=== PATIENT | female | born 1965 | race Caucasian/White ===

== ENCOUNTER 2018-06-21 15:41 | Emergency (ER) | payer MEDICARE ==
[~2018-06-21] VITALS: Ht 167.6 cm; Wt 117.5 kg
[2018-06-21 15:44] VITALS: BP 154/78
[2018-06-21] MEDS ORDERED: PROCHLORPERAZINE 5 MG/ML, 2ML IVPush ONE (16:00)
[2018-06-21] MEDS ORDERED: DIPHENHYDRAMINE 50 MG/ML, 1ML IVPush ONE (16:00)
[2018-06-21] MEDS ORDERED: KETOROLAC 30 MG/1 ML IVPush ONE (16:00)
[2018-06-21] MEDS ORDERED: SODIUM CHLORIDE FLUSH 10ML SYR IVF ONE (16:00)
[2018-06-21 16:43] LABS: HCT (SEDRATE) 44.9 % (34.6-47.8)
[2018-06-21] MEDS ORDERED: DIPHENHYDRAMINE 50 MG/ML, 1ML ONE (16:59)
[2018-06-21] MEDS ORDERED: KETOROLAC 30 MG/1 ML ONE (16:59)
[2018-06-21] MEDS ORDERED: PROCHLORPERAZINE 5 MG/ML, 2ML ONE (16:59)
[2018-06-21] MEDS ORDERED: METHOCARBAMOL 750 MG TABLET PO ONE (18:30)
[2018-06-21] MEDS ORDERED: METHOCARBAMOL 750 MG TABLET ONE (18:36)
== END 2018-06-21 18:53 | disposition home or self-care (01) ==
LOC: ED 16:23
DX: G44.219 Episodic tension-type headache, not intractable (principal); E11.9 Type 2 diabetes mellitus without complications
CPT/HCPCS: 36415; 70450; 85651; 96374; 96375; 99284; J0780; J1200; J1885

== ENCOUNTER 2018-09-06 11:06 | Emergency (ER) | payer MEDICARE ==
[~2018-09-06] VITALS: Ht 167.6 cm; Wt 121.0 kg
[2018-09-06 11:56] LABS: BASOPHILS # (AUTO) 0.06 x10^3/uL (0-0.1); BASOPHILS % (AUTO) 1 % (0-1); EOSINOPHILS # (AUTO) 0.11 x10^3/uL (0-0.4); EOSINOPHILS % (AUTO) 1 % (1-7); LYMPHOCYTES # (AUTO) 2.45 x10^3/uL (1-3.4); LYMPHOCYTES % (AUTO) 32 % (22-44); MD NO; MEAN CORPUSCULAR HEMOGLOBIN 30.4 pg (27.0-34.8); MEAN CORPUSCULAR HGB CONC 33.2 g/dL (32.4-35.8); MEAN CORPUSCULAR VOLUME 91.5 fL (80-100); MEAN PLATELET VOLUME 7.9 fL (7.4-10.4); MONOCYTES # (AUTO) 0.37 x10^3/uL (0.2-0.8); MONOCYTES % (AUTO) 5 % (2-9); NEUTROPHILS # (AUTO) 4.77 x10^3/uL (1.8-6.8); NEUTROPHILS % (AUTO) 62 % (42-75); PLATELET COUNT 268 x10^3/uL (130-400); RED BLOOD COUNT 4.93 x10^6/uL (3.82-5.3); RED CELL DISTRIBUTION WIDTH 13.7 % (9.6-15.2)
[2018-09-06 12:06] LABS: ALANINE AMINOTRANSFERASE 26 U/L (12-78); ALBUMIN 3.6 g/dL (3.4-5.0); ANION GAP 6 mmol/L (5-15); CALCIUM 9.2 mg/dL (8.5-10.1); CHLORIDE 108 mmol/L (98-107)
[2018-09-06 12:10] LABS: ALKALINE PHOSPHATASE 109 U/L (45-117); BILIRUBIN,TOTAL 0.7 mg/dL (0.2-1.0); CREATININE 0.67 mg/dL (0.55-1.02); TOTAL PROTEIN 7.3 g/dL (6.4-8.2)
--- NOTE | 2018-09-06 12:34 | NUR ---
TO ROOM FROM LOBBY. NAD.
--- NOTE | 2018-09-06 12:37 | NUR ---
gown given. family at bs. connected to monitor.
--- NOTE | 2018-09-06 12:44 | NUR ---
pt complaining of lower abd pain, rad to left flank, weakness, nausea, sent by pcp after lab drawn
--- NOTE | 2018-09-06 12:45 | NUR ---
additional symptoms include dry mouth, fatigue, increased urination,
[2018-09-06 12:46] VITALS: BP 129/72
[2018-09-06 12:46] LABS: MICROSCOPIC NOT IND
[2018-09-06 12:59] LABS: CULTURE INDICATED? NO
--- NOTE | 2018-09-06 14:00 | NUR ---
report from avni rn With assessment patient sitting comfortably on bedside-sipping water w/out difficulty d/c dispo pending
== END 2018-09-06 14:39 | disposition home or self-care (01) ==
LOC: ED 14:09
DX: R53.1 Weakness (principal); E11.9 Type 2 diabetes mellitus without complications; R10.30 Lower abdominal pain, unspecified; R11.0 Nausea; R53.83 Other fatigue
CPT/HCPCS: 36415; 80053; 81003; 82962; 83690; 85025; 99283

== ENCOUNTER 2019-05-13 05:19 | Observation (INO) | payer MEDICARE ==
[2019-05-12 14:41] LABS: BASOPHILS # (AUTO) 0.02 x10^3/uL (0-0.1); BASOPHILS % (AUTO) 0 % (0-1); EOSINOPHILS # (AUTO) 0.11 x10^3/uL (0-0.4); EOSINOPHILS % (AUTO) 1 % (1-7); LYMPHOCYTES # (AUTO) 2.65 x10^3/uL (1-3.4); LYMPHOCYTES % (AUTO) 36 % (22-44); MD NO; MEAN CORPUSCULAR HGB CONC 34.2 g/dL (32.4-35.8); MEAN CORPUSCULAR VOLUME 90.6 fL (80-100); MEAN PLATELET VOLUME 8.1 fL (7.4-10.4); MONOCYTES # (AUTO) 0.35 x10^3/uL (0.2-0.8); MONOCYTES % (AUTO) 5 % (2-9); NEUTROPHILS # (AUTO) 4.31 x10^3/uL (1.8-6.8); NEUTROPHILS % (AUTO) 58 % (42-75); PLATELET COUNT 254 x10^3/uL (130-400); RED BLOOD COUNT 4.73 x10^6/uL (3.82-5.3); RED CELL DISTRIBUTION WIDTH 13.9 % (9.6-15.2)
[2019-05-12 14:52] LABS: ALANINE AMINOTRANSFERASE 38 U/L (12-78); ALBUMIN 3.2 g/dL (3.4-5.0); ANION GAP 8 mmol/L (5-15); CALCIUM 8.8 mg/dL (8.5-10.1); CHLORIDE 105 mmol/L (98-107)
[2019-05-12 14:55] LABS: ALKALINE PHOSPHATASE 104 U/L (45-117); BILIRUBIN,TOTAL 0.5 mg/dL (0.2-1.0); TOTAL PROTEIN 6.8 g/dL (6.4-8.2)
[~2019-05-13] VITALS: Ht 167.6 cm; Wt 120.0 kg
[~2019-05-13 05:19] MED LIST: ARIP10TA33 PO; BACL-19 PO; DULO60CA7 PO; OXYC-302 PO; SUVO10TA PO
[2019-05-13 06:05] VITALS: BP 126/89
[2019-05-13] MEDS ORDERED: LACTATED RINGERS 1,000 ML IV SCH (06:09)
[2019-05-13] MEDS ORDERED: ACETAMINOPHEN 100 ML IVPB ONE (06:30)
[2019-05-13] MEDS ORDERED: TRANEXAMIC ACID 100 MG/ML, 10ML ONE (06:45)
[2019-05-13] MEDS ORDERED: KETOROLAC 60 MG/2 ML ONE (06:45)
[2019-05-13] MEDS ORDERED: METHYLENE BLUE 10 MG/ML 10ML ONE (06:45)
[2019-05-13] MEDS ORDERED: morphine SULFATE/PF 1 MG/ML, 10ML ONE (06:45)
[2019-05-13] MEDS ORDERED: SODIUM CHLORIDE 0.9% 50 ML ONE (06:46)
[2019-05-13] MEDS ORDERED: EPINEPHRINE 1 MG/ML, 1ML ONE (06:46)
[2019-05-13] MEDS ORDERED: ROPIvacaine/PF 0.2%, 20 ML ONE (06:46)
[2019-05-13] MEDS ORDERED: MIDAZOLAM 1 MG/ML, 2ML ONE (06:55)
[2019-05-13] MEDS ORDERED: FENTANYL PF 250 MCG/5ML ONE ×2 (06:56→08:16)
[2019-05-13] MEDS ORDERED: VANCOMYCIN 1,000 MG ONE ×2 (07:00→07:29)
[2019-05-13] MEDS ORDERED: ACETAMINOPHEN 500 MG TABLET PO ONE (07:00)
[2019-05-13] MEDS ORDERED: SCOPOLAMINE 1MG PATCH TD ONE ×2 (07:04)
[2019-05-13] MEDS ORDERED: METOPROLOL 1 MG/ML, 5ML ONE (07:31)
[2019-05-13] MEDS ORDERED: hydrALAzine 20 MG/ML, 1ML ONE (07:31)
[2019-05-13] MEDS ORDERED: KETOROLAC 30 MG/1 ML IV PRN (08:30)
[2019-05-13] MEDS ORDERED: DIAZEPAM 5 MG/ML, 2ML IVPush PRN (08:30)
[2019-05-13] MEDS ORDERED: ACETAMINOPHEN 325 MG TABLET PO PRN (08:30)
[2019-05-13] MEDS ORDERED: OXYcodone 5 MG/5 ML ORAL.SOL UDC PO PRN (08:30)
[2019-05-13] MEDS ORDERED: MEPERIDINE/PF 25MG/0.5ML IVPush PRN (08:30)
[2019-05-13] MEDS ORDERED: LABETALOL 5MG/ML, 20ML IV PRN (08:30)
[2019-05-13] MEDS ORDERED: hydrALAzine 20 MG/ML, 1ML IV PRN (08:30)
[2019-05-13] MEDS ORDERED: PROMETHAZINE 25 MG/ML, 1ML IV PRN (08:30)
[2019-05-13] MEDS ORDERED: ALBUTEROL SULFATE 2.5 MG/3 ML NPPB PRN (08:30)
[2019-05-13] MEDS ORDERED: ONDANSETRON 2MG/ML, 2ML ONE (08:31)
[2019-05-13] MEDS ORDERED: DEXAMETHASONE 4 MG/ML, 1ML ONE (08:31)
[2019-05-13] MEDS ORDERED: PROPOFOL 10 MG/ML, 20ML ONE (08:31)
[2019-05-13] MEDS ORDERED: CEFAZOLIN 1,000 MG ONE (08:31)
[2019-05-13] MEDS ORDERED: SUCCINYLCHOLINE 20 MG/ML, 10ML ONE (08:31)
[2019-05-13] MEDS ORDERED: GLYCOPYRROLATE 0.2MG/1ML, 5ML ONE (08:31)
[2019-05-13] MEDS ORDERED: ROCURONIUM 10MG/ML,5ML ONE (08:31)
[2019-05-13] MEDS ORDERED: NEOSTIGMINE 1 MG/ML, 10ML ONE (08:31)
[2019-05-13] MEDS: FENTANYL PF 100 MCG/2ML IV PRN ×2 (09:35→09:44)
[2019-05-13] MEDS ORDERED: OXYcodone 5 MG/5 ML ORAL.SOL UDC ONE (09:38)
[2019-05-13] MEDS ORDERED: FENTANYL PF 100 MCG/2ML ONE (09:38)
[2019-05-13] MEDS: HYDROmorphone 1 MG/ML, 1ML INJ IVPush PRN ×2 (10:06→10:14)
[2019-05-13] MEDS ORDERED: HYDROmorphone 1 MG/ML, 1ML INJ ONE (10:07)
[2019-05-13 10:45] VITALS: BP 158/94
[2019-05-13] MEDS ORDERED: GEMFIBROZIL 600 MG TABLET ONE (11:22)
[2019-05-13] MEDS ORDERED: GABAPENTIN 300 MG CAPSULE ONE (11:24)
[2019-05-13] MEDS ORDERED: GABAPENTIN 300 MG CAPSULE PO PRN (11:30)
[2019-05-13] MEDS: KETOROLAC 30 MG/1 ML IVPush SCH ×3 (12:26→22:42)
[2019-05-13] MEDS ORDERED: ACETAMINOPHEN 500 MG TABLET PO SCH ×2 (12:30→13:00)
[2019-05-13] MEDS ORDERED: KETOROLAC 30 MG/1 ML IVPush SCH (12:30)
[2019-05-13] MEDS ORDERED: ONDANSETRON 2MG/ML, 2ML IVPush PRN ×2 (12:30→13:30)
[2019-05-13] MEDS ORDERED: HYDROcodone/APAP 7.5-325MG/15ML UDC PO PRN (12:30)
[2019-05-13] MEDS ORDERED: OXYcodone/APAP 5/325MG TABLET PO SCH ×2 (12:30→14:00)
[2019-05-13] MEDS ORDERED: POTASSIUM CHLORIDE 10 MEQ in D5%-0.45% NACL 1,000 ML IV SCH ×2 (12:30→13:30)
[2019-05-13 12:56] VITALS: BP 102/98
[2019-05-13] MEDS ORDERED: OXYcodone IR 5MG TABLET PO SCH (13:00)
[2019-05-13] MEDS: ACETAMINOPHEN 500 MG TABLET PO SCH ×2 (13:30→20:26)
[2019-05-13] MEDS ORDERED: CEFAZOLIN PMX 1GM/50ML 50 ML IVPB SCH (13:30)
[2019-05-13] MEDS ORDERED: HYDROcodone/APAP 10/325 MG TABLET PO PRN (13:30)
[2019-05-13] MEDS ORDERED: VANCOMYCIN PMX 1GM/200ML 200 ML IVPB ONE ×2 (13:30→20:00)
[2019-05-13] MEDS: HYDROcodone/APAP 7.5-325MG/15ML UDC PO PRN ×2 (14:05→18:03)
[2019-05-13] MEDS: CEFAZOLIN PMX 1GM/50ML 50 ML IVPB SCH (16:12)
[2019-05-13] MEDS: BACLOFEN 10 MG TABLET PO SCH ×2 (16:12→20:25)
[2019-05-13] MEDS ORDERED: ASPIRIN 81 MG TABLET EC PO SCH (18:00)
[2019-05-13] MEDS: ASPIRIN 81 MG TABLET EC PO SCH (18:03)
[2019-05-13] MEDS ORDERED: FLU VACC QS2019-20 36MOS UP/PF 0.5 ML IM-VACC ONE (19:30)
[2019-05-13 19:36] VITALS: BP 149/87
[2019-05-13] MEDS: DULOXETINE 30 MG CAPSULE.DR PO SCH (20:26)
[2019-05-13] MEDS ORDERED: GABAPENTIN 300 MG CAPSULE PO SCH (21:00)
[2019-05-13] MEDS ORDERED: SUVOREXANT 10 MG HOMEMEDPO PRN (21:00)
[2019-05-13] MEDS: OXYcodone IR 5MG TABLET PO SCH (22:42)
[2019-05-13 23:54] VITALS: BP 138/79
[2019-05-14] MEDS: CEFAZOLIN PMX 1GM/50ML 50 ML IVPB SCH (00:54)
[2019-05-14] MEDS: ACETAMINOPHEN 500 MG TABLET PO SCH ×2 (02:30→08:35)
[2019-05-14] MEDS: OXYcodone IR 5MG TABLET PO SCH ×2 (04:06→09:43)
[2019-05-14 04:36] VITALS: BP 150/81
[2019-05-14] MEDS: KETOROLAC 30 MG/1 ML IVPush SCH (06:05)
[2019-05-14] MEDS: ASPIRIN 81 MG TABLET EC PO SCH (06:06)
[2019-05-14 06:47] VITALS: BP 133/82
[2019-05-14] MEDS: DULOXETINE 30 MG CAPSULE.DR PO SCH (08:34)
[2019-05-14] MEDS: BACLOFEN 10 MG TABLET PO SCH (08:35)
[2019-05-14] MEDS ORDERED: ARIPIPRAZOLE 10 MG TABLET PO SCH (09:00)
== END 2019-05-14 13:40 | disposition home or self-care (01) ==
LOC: OUT 05:19 → MERGE 10:00 → 4NE 10:39 → OUT 13:50 → 4NE 13:57 → DCLOUNGE 05-14 13:32
PROVIDERS: ADMIT Orthopaedic Surgery; ATTEND Orthopaedic Surgery
DX: M17.12 Unilateral primary osteoarthritis, left knee (principal); E66.01 Morbid (severe) obesity due to excess calories; G89.29 Other chronic pain; Z68.41 Body mass index [BMI] 40.0-44.9, adult; Z79.899 Other long term (current) drug therapy; Z23 Encounter for immunization
CPT/HCPCS: 27447; 36415; 80053; 82962; 85025; 87081; 87147; 90686; 93005; 96365; 96366; 96367; 96375; 96376; 97110; 97161; 97530; C1713; C1776; G0008; G0378; J0171; J0330; J0360; J0690; J1100; J1170; J1885; J2250; J2274; J2405; J2704; J2795; J3010; J3370; J7120; Q9968; J2710

== ENCOUNTER 2019-10-01 12:03 | Inpatient (IN) | payer MEDICARE ==
[~2019-10-01] VITALS: Ht 167.6 cm; Wt 115.0 kg
--- NOTE | 2019-10-01 12:24 | NUR ---
MAKER UP FOLDING: PT FROM LOBBY TO ROOM AT THIS TIME.
[2019-10-01 12:42] LABS: BASOPHILS # (AUTO) 0.02 x10^3/uL (0-0.1); BASOPHILS % (AUTO) 0 % (0-1); EOSINOPHILS # (AUTO) 0.13 x10^3/uL (0-0.4); EOSINOPHILS % (AUTO) 2 % (1-7); LYMPHOCYTES # (AUTO) 2.87 x10^3/uL (1-3.4); LYMPHOCYTES % (AUTO) 33 % (22-44); MD NO; MEAN CORPUSCULAR HEMOGLOBIN 29.2 pg (27.0-34.8); MEAN CORPUSCULAR HGB CONC 33.4 g/dL (32.4-35.8); MEAN CORPUSCULAR VOLUME 87.4 fL (80-100); MEAN PLATELET VOLUME 8.1 fL (7.4-10.4); MONOCYTES # (AUTO) 0.39 x10^3/uL (0.2-0.8); MONOCYTES % (AUTO) 5 % (2-9); NEUTROPHILS # (AUTO) 5.33 x10^3/uL (1.8-6.8); NEUTROPHILS % (AUTO) 61 % (42-75); PLATELET COUNT 253 x10^3/uL (130-400); RED CELL DISTRIBUTION WIDTH 14.2 % (9.6-15.2)
--- NOTE | 2019-10-01 13:10 | NUR ---
EDMD Law at bedside for initial assessment. brewery technician at bedside for imaging.
[2019-10-01 13:11] LABS: ALBUMIN 3.2 g/dL (3.4-5.0); ANION GAP 7 mmol/L (5-15); CALCIUM 8.8 mg/dL (8.5-10.1); CHLORIDE 107 mmol/L (98-107)
[2019-10-01 13:18] LABS: ALANINE AMINOTRANSFERASE 21 U/L (12-78); ALKALINE PHOSPHATASE 105 U/L (45-117); BILIRUBIN,TOTAL 0.6 mg/dL (0.2-1.0); CREATININE 0.92 mg/dL (0.55-1.02); TROPONIN I < 0.015 ng/mL (0.000-0.045)
[2019-10-01] MEDS ORDERED: MORPHINE SULFATE 4 MG/ML, 1ML IVPush ONE (13:30)
--- NOTE | 2019-10-01 13:32 | NUR ---
PT PRESENTS TO ED WITH C/O STERNAL CHEST PAIN, DULL IN NATURE, LEVEL 5/10. ONSET 1.5 WEEKS AGO, SOB ASSOCIATED. PT DENIES RADIATING PAIN. PT NOTES LEFT KNEE SURGERY 05/13/19 WITH CONTINUED LEFT KNEE PAIN SINCE THAT TIME, DOESN'T TAKE ANY BLOOD THINNERS. PT'S PCP RECOMMENDED ED VISIT TO RULE OUT DVT. PT REPORTS COUGH X 2 WEEKS. PT DENIES N/V/D, DENIES FEVER. PT DENIES SICK CONTACTS. EKG TAKEN IN TRIAGE, REPEAT TAKEN PER MD INSTRUCTIONS ONCE IN ROOM. ALL MONITORS IN PLACE, NSR ON PAPER COUNTER WITH NO ECTOPY NOTED. CALL LIGHT IN REACH, PIV PLACED WITH US GUIDANCE BY EDTA.
[2019-10-01] MEDS ORDERED: MORPHINE SULFATE 4 MG/ML, 1ML ONE ×3 (13:41→19:08)
[2019-10-01] MEDS ORDERED: NITROGLYCERIN SINGLE TAB 0.4 MG SL ONE (13:41)
[2019-10-01] MEDS: NITROGLYCERIN 0.4 MG BOTTLE (25 TABS) SL PRN (13:46)
--- NOTE | 2019-10-01 13:50 | NUR ---
PER EDPR LAW, RN TO GIVE MORPHINE ONLY IF PAIN NOT RELIEVED BY NITRO. PT NOTES PAIN LEVEL IMPROVED SLIGHTLY, DECREASED FROM 5/10 TO 4/10. PT REMAINS NSR ON KINESIOLOGY PROFESSOR WITH NO ECTOPY. BP TOLERATING.
--- NOTE | 2019-10-01 13:58 | NUR ---
PT REFUSES SECOND DOSE NITRO WHEN OFFERED. EDMD LAW NOTIFIED D DIMER IS 2.26 , AWAITING FURTHER ORDERS.
--- NOTE | 2019-10-01 14:29 | NUR ---
MD LAW NOTIFIED PT STATES SHE HAS ANAPHYLACTIC RXN TO IODINE CONTRAST, STATES HE WILL CANCEL CTA ORDER AND ORDER VQ SCAN IN PLACE.
--- NOTE | 2019-10-01 15:17 | NUR ---
REPORT RECEIVED FROM HOWARD SANON. PT RESTING ON [employer] W/ CALL LIGHT IN REACH, CONNECTED TO ALL MONITORING, VSS, NADN. UPDATED ON POC FOR ADMIT.
--- NOTE | 2019-10-01 15:26 | NUR ---
PT TO VQ SCAN.
[2019-10-01] MEDS ORDERED: CLON0.2T PO (16:13)
--- NOTE | 2019-10-01 16:22 | NUR ---
PT MEDICATED PER EMAR FOR PAIN 09/11 FROM LT KNEE. PT RESTING ON [employer] W/ CALL LIGHT IN REACH AND SIDE RAILS UPX2. CONNECTED TO ALL MONITORING. VSS, NADN. PER PT OK TO EAT DINNER. DIET TRAY ORDERED. PT DENIES FURTHER NEEDS AT THIS TIME.
[2019-10-01] MEDS ORDERED: ONDANSETRON 2MG/ML, 2ML IVPush PRN (17:00)
[2019-10-01] MEDS ORDERED: NITROGLYCERIN 0.4 MG/SPRAY SL PRN (17:00)
[2019-10-01] MEDS ORDERED: DEXTROSE 50%, 50ML SYRINGE IVPush PRN (17:00)
[2019-10-01] MEDS ORDERED: NITROGLYCERIN 0.4 MG BOTTLE (25 TABS) SL PRN (17:00)
[2019-10-01] MEDS ORDERED: GLUCAGON 1 MG IM PRN (17:00)
[2019-10-01] MEDS ORDERED: morphine SULFATE 10 MG/ML, 1ML IVPush PRN (17:00)
[2019-10-01] MEDS ORDERED: DEXTROSE 4 GM TAB.CHEW PO PRN (17:00)
[2019-10-01 17:28] LABS: TROPONIN I < 0.015 ng/mL (0.000-0.045)
[2019-10-01] MEDS ORDERED: ENOXAPARIN 40 MG/0.4 ML ONE (17:33)
[2019-10-01] MEDS: ENOXAPARIN 40 MG/0.4 ML SQ SCH (17:35)
--- NOTE | 2019-10-01 17:47 | NUR ---
DIET TRAY DELIVERED. PT REPORTS RELIEF OF PAIN AFTER MEDS. PT RESTING ON [employer] W/ CALL LIGHT IN REACH AND SIDE RAILS UPX2. LAM FERNANDEZ.
--- NOTE | 2019-10-01 18:37 | NUR ---
PT AMBULATED TO THE BR INDEPENDENTLY W/ A STEADY GAIT. PT RETURNED TO ROOM AND TRANSPORTED ONTO HOSPITAL BED. PT 89% RA, PLACED ON 2L W/ DESIRED EFFECT. OTHER VS WDL. NADN. PT RESTING W/ CALL LIGHT IN REACH AND SIDE RAILS UPX2.
--- NOTE | 2019-10-01 18:57 | NUR ---
RECEIVED BEDSIDE REPORT FROM TALITA GARCIA. PT SITTING IN BED, ON IPAD, NO SIGNS OF ACUTE DISTRESS. WILL CONITNUE TO MONITOR. Addendum: 10/01/19 at 1858 by MARC SITTING IN HOSPITAL BED, ALL NEEDS MET AT THIS TIME.
[2019-10-01] MEDS: MORPHINE SULFATE 4 MG/ML, 1ML IVPush PRN (19:13)
--- NOTE | 2019-10-01 19:37 | NUR ---
REPORT GIVEN TO JOSE OH RN.
--- NOTE | 2019-10-01 19:40 | NUR ---
FS[facility] NOT CHECKED WITH MEAL, CHECKED UPON THIS RN ASSUMING CARE. INSULIN SENT FOR FROM RX, DID NOT RECIEVE PRIOR TO PT BEING TRANSFERED. FLOOR RN MADE AWARE OF FSBG OF 169 AND THAT INSULIN PEN WILL BE SENT.
[2019-10-01] MEDS: SODIUM CHLORIDE FLUSH 10ML SYR IVF SCH (21:00)
[2019-10-01] MEDS: BACLOFEN 10 MG TABLET PO SCH (21:24)
[2019-10-01] MEDS: INSULIN LISPRO 100 UNITS/ML, PEN SQ-INSULIN SCH (21:25)
[2019-10-01 21:30] VITALS: BP 120/80
[2019-10-01 23:21] LABS: TROPONIN I < 0.015 ng/mL (0.000-0.045)
[2019-10-02 01:00] VITALS: BP 106/67
[2019-10-02] MEDS: MORPHINE SULFATE 4 MG/ML, 1ML IVPush PRN (01:02)
[2019-10-02] MEDS: INSULIN LISPRO 100 UNITS/ML, PEN SQ-INSULIN SCH ×4 (07:00→21:45)
[2019-10-02 07:12] LABS: BASOPHILS # (AUTO) 0.09 x10^3/uL (0-0.1); BASOPHILS % (AUTO) 2 % (0-1); EOSINOPHILS # (AUTO) 0.12 x10^3/uL (0-0.4); EOSINOPHILS % (AUTO) 2 % (1-7); LYMPHOCYTES # (AUTO) 3.05 x10^3/uL (1-3.4); LYMPHOCYTES % (AUTO) 47 % (22-44); MD NO; MEAN CORPUSCULAR HEMOGLOBIN 29.1 pg (27.0-34.8); MEAN CORPUSCULAR HGB CONC 33.1 g/dL (32.4-35.8); MEAN CORPUSCULAR VOLUME 87.9 fL (80-100); MEAN PLATELET VOLUME 8.5 fL (7.4-10.4); MONOCYTES # (AUTO) 0.27 x10^3/uL (0.2-0.8); MONOCYTES % (AUTO) 4 % (2-9); NEUTROPHILS # (AUTO) 2.92 x10^3/uL (1.8-6.8); NEUTROPHILS % (AUTO) 45 % (42-75); PLATELET COUNT 203 x10^3/uL (130-400); RED BLOOD COUNT 4.47 x10^6/uL (3.82-5.3); RED CELL DISTRIBUTION WIDTH 14.1 % (9.6-15.2)
[2019-10-02 07:18] LABS: ALANINE AMINOTRANSFERASE 20 U/L (12-78); ALBUMIN 2.6 g/dL (3.4-5.0); ANION GAP 6 mmol/L (5-15); CALCIUM 8.3 mg/dL (8.5-10.1); CHLORIDE 107 mmol/L (98-107); CHOLESTEROL, TOTAL 125 mg/dL (140-239); CREATININE 0.68 mg/dL (0.55-1.02)
[2019-10-02 07:28] LABS: ALKALINE PHOSPHATASE 86 U/L (45-117); BILIRUBIN,TOTAL 0.5 mg/dL (0.2-1.0); TOTAL PROTEIN 6.1 g/dL (6.4-8.2); TRIGLYCERIDES 165 mg/dL (50-200); VLDL CHOLESTEROL 33 mg/dL (0-25)
[2019-10-02 07:54] VITALS: BP 117/78
[2019-10-02] MEDS ORDERED: REGADENOSON 0.4 MG/5 ML SYRINGE ONE (08:43)
[2019-10-02 09:09] VITALS: BP 107/74
[2019-10-02] MEDS: SODIUM CHLORIDE FLUSH 10ML SYR IVF SCH ×2 (09:20→21:00)
[2019-10-02] MEDS: NITROGLYCERIN 0.4 MG BOTTLE (25 TABS) SL PRN (09:20)
[2019-10-02] MEDS: BACLOFEN 10 MG TABLET PO SCH ×3 (09:21→21:35)
[2019-10-02] MEDS: DULOXETINE 30 MG CAPSULE.DR PO SCH (09:21)
[2019-10-02] MEDS: ARIPIPRAZOLE 10 MG TABLET PO SCH (09:21)
[2019-10-02 09:30] VITALS: BP 90/57
[2019-10-02 11:36] LABS: CHOL/HDL RATIO 3.8; HDL CHOL % 26 % (28-40); HDL CHOLESTEROL (DIRECT) 33 mg/dL (40-60); LDL CHOLESTEROL,CALCULATED 59 mg/dL (54-169); LDL/HDL RATIO 1.8 (0.5-3.0)
[2019-10-02 12:24] VITALS: BP 115/78
[2019-10-02] MEDS: ACETAMINOPHEN 325 MG TABLET PO PRN ×2 (14:10→21:44)
[2019-10-02] MEDS: ENOXAPARIN 40 MG/0.4 ML SQ SCH (16:26)
[2019-10-02] MEDS: methylPREDNISolone SOD SUCC 125 MG/2 ML IVPush SCH (17:40)
[2019-10-02 18:40] VITALS: BP 147/91
[2019-10-03 01:05] VITALS: BP 109/89
[2019-10-03] MEDS: methylPREDNISolone SOD SUCC 125 MG/2 ML IVPush SCH ×2 (05:53→16:30)
[2019-10-03 06:58] LABS: BASOPHILS # (AUTO) 0.01 x10^3/uL (0-0.1); BASOPHILS % (AUTO) 0 % (0-1); EOSINOPHILS % (AUTO) 0 % (1-7); LYMPHOCYTES # (AUTO) 1.59 x10^3/uL (1-3.4); LYMPHOCYTES % (AUTO) 14 % (22-44); MD NO; MEAN CORPUSCULAR HEMOGLOBIN 28.9 pg (27.0-34.8); MEAN CORPUSCULAR HGB CONC 33.1 g/dL (32.4-35.8); MEAN CORPUSCULAR VOLUME 87.2 fL (80-100); MEAN PLATELET VOLUME 8.6 fL (7.4-10.4); MONOCYTES # (AUTO) 0.03 x10^3/uL (0.2-0.8); MONOCYTES % (AUTO) 0 % (2-9); NEUTROPHILS # (AUTO) 10.02 x10^3/uL (1.8-6.8); NEUTROPHILS % (AUTO) 86 % (42-75); PLATELET COUNT 172 x10^3/uL (130-400); RED BLOOD COUNT 5.14 x10^6/uL (3.82-5.3); RED CELL DISTRIBUTION WIDTH 13.9 % (9.6-15.2)
[2019-10-03 07:11] LABS: ALANINE AMINOTRANSFERASE 21 U/L (12-78); ALBUMIN 3.2 g/dL (3.4-5.0); ANION GAP 8 mmol/L (5-15); CALCIUM 9.3 mg/dL (8.5-10.1); CHLORIDE 105 mmol/L (98-107); CREATININE 0.86 mg/dL (0.55-1.02)
[2019-10-03 07:14] LABS: ALKALINE PHOSPHATASE 107 U/L (45-117); BILIRUBIN,TOTAL 0.5 mg/dL (0.2-1.0); TOTAL PROTEIN 6.7 g/dL (6.4-8.2)
[2019-10-03] MEDS: INSULIN LISPRO 100 UNITS/ML, PEN SQ-INSULIN SCH ×4 (07:42→20:48)
[2019-10-03] MEDS: SODIUM CHLORIDE FLUSH 10ML SYR IVF SCH ×2 (07:43→20:47)
[2019-10-03] MEDS: DULOXETINE 30 MG CAPSULE.DR PO SCH (07:43)
[2019-10-03] MEDS: BACLOFEN 10 MG TABLET PO SCH ×3 (07:43→20:47)
[2019-10-03] MEDS: ARIPIPRAZOLE 10 MG TABLET PO SCH (07:43)
[2019-10-03 08:02] VITALS: BP 106/84
[2019-10-03] MEDS: MORPHINE SULFATE 4 MG/ML, 1ML IVPush PRN ×2 (08:04→17:14)
[2019-10-03 12:39] VITALS: BP 103/62
[2019-10-03] MEDS: ENOXAPARIN 40 MG/0.4 ML SQ SCH (16:30)
[2019-10-03 18:40] VITALS: BP 100/63
[2019-10-04 00:23] VITALS: BP 99/51
[2019-10-04] MEDS: ACETAMINOPHEN 325 MG TABLET PO PRN (05:14)
[2019-10-04] MEDS: methylPREDNISolone SOD SUCC 125 MG/2 ML IVPush SCH ×2 (05:15→16:35)
[2019-10-04] MEDS: DULOXETINE 30 MG CAPSULE.DR PO SCH (07:30)
[2019-10-04] MEDS: BACLOFEN 10 MG TABLET PO SCH ×2 (07:30→16:35)
[2019-10-04] MEDS: MORPHINE SULFATE 4 MG/ML, 1ML IVPush PRN ×2 (07:30→16:43)
[2019-10-04] MEDS: ARIPIPRAZOLE 10 MG TABLET PO SCH (07:30)
[2019-10-04] MEDS: SODIUM CHLORIDE FLUSH 10ML SYR IVF SCH (07:31)
[2019-10-04] MEDS: INSULIN LISPRO 100 UNITS/ML, PEN SQ-INSULIN SCH ×3 (07:31→16:41)
[2019-10-04 07:42] VITALS: BP 101/66
[2019-10-04 14:03] VITALS: BP 100/63
[2019-10-04] MEDS: ENOXAPARIN 40 MG/0.4 ML SQ SCH (16:35)
== END 2019-10-04 18:55 | disposition home or self-care (01) | DRG 189 ==
LOC: ED 15:27 → SUATTDRO 16:27 → EDIP 16:33 → 5SO 19:50 → 4EST 10-02 18:15 → OBSVTOIN 10-03 13:24
PROVIDERS: ADMIT Internal Medicine; ATTEND Internal Medicine
PROC: 5A09357 Assistance with Respiratory Ventilation, Less than 24 Consecutive Hours, Continuous Positive Airway Pressure (ICD-10-PCS; principal; 2019-10-03)
PROC: 5A09357 Assistance with Respiratory Ventilation, Less than 24 Consecutive Hours, Continuous Positive Airway Pressure (ICD-10-PCS; 2019-10-04)
DX: J96.00 Acute respiratory failure, unspecified whether with hypoxia or hypercapnia (principal); E11.9 Type 2 diabetes mellitus without complications; E78.5 Hyperlipidemia, unspecified; F32.9 Major depressive disorder, single episode, unspecified; J44.9 Chronic obstructive pulmonary disease, unspecified; Z20.828 Contact with and (suspected) exposure to other viral communicable diseases; Z88.8 Allergy status to other drugs, medicaments and biological substances; Z91.041 Radiographic dye allergy status; Z88.1 Allergy status to other antibiotic agents; I25.10 Atherosclerotic heart disease of native coronary artery without angina pectoris
CPT/HCPCS: 36415; 71045; 78452; 78582; 80053; 80061; 82962; 83036; 83615; 84443; 84484; 85025; 85379; 87635; 93005; 93017; 93306; G0378; J1650; J2785; A9502; A9540; A9558; J1815; J2270; J2930